=== PATIENT | male | born 2000 | race Caucasian/White ===

== ENCOUNTER 2025-05-29 02:40 | Emergency (ER) | payer SELFPAY ==
[~2025-05-29] VITALS: Ht 177.8 cm; Wt 77.1 kg
[2025-05-29 03:03] LABS: PLATELET COUNT (AUTO) 241 K/uL (152-348); RED BLOOD CELL COUNT(AUTO) 4.49 MIL/uL (4.06-5.63); RED CELL DISTRIBUTION WIDTH 12.8 % (12.1-16.2); WHITE BLOOD COUNT (AUTO) 12.8 K/uL (3.6-10.2)
[2025-05-29 03:11] LABS: CREATININE 1.1 mg/dL (0.6-1.3); SODIUM SERUM 146 mmol/L (136-145); UREA NITROGEN, BLOOD 15 mg/dL (7-18)
[2025-05-29 03:15] LABS: ETHANOL 353.0 MG/DL (0-10)
[2025-05-29 03:17] LABS: ASPARTATE AMINOTRANSFERASE 54 U/L (15-37); TOTAL PROTEIN, SERUM 7.3 g/dL (6.4-8.2)
[2025-05-29 03:44] LABS: *BILIRUBIN,URIN NEGATIVE (NEGATIVE); *BLOOD, URINE 2+ (NEGATIVE); *CLARITY,URINE CLEAR (CLEAR); *COLOR,URINE YELLOW (YELLOW); *KETONES,URINE 1+ (NEGATIVE); *PROTEIN,URINE 2+ (NEGATIVE); *UROBILINOGEN,URINE 0.2 E.U./dl (NORMAL); LEUKOCYTE ESTERASE ,URINE NEGATIVE (NEGATIVE); NITRITE, URINE NEGATIVE (NEGATIVE); UGLUCOSE NEGATIVE (NEGATIVE)
[2025-05-29 04:00] VITALS: BP 116/57
[2025-05-29 04:11] LABS: SQUAMOUS EPITHELIAL CELL,UR NONE SEEN /HPF (NONE SEEN)
[2025-05-29 04:12] LABS: *AMPHETAMINE, URINE NEGATIVE (NEGATIVE); *BARBITURATE, URINE NEGATIVE (NEGATIVE); *BENZODIAZEPINE, URINE POSITIVE (NEGATIVE); *CANNABINOID, URINE POSITIVE (NEGATIVE); *COCCAINE, URINE NEGATIVE (NEGATIVE); *OPIATE, URINE NEGATIVE (NEGATIVE); *PHENCYCLIDINE SCREEN,URINE NEGATIVE (NEGATIVE); FENTANYL, URINE NEGATIVE (NEGATIVE)
[2025-05-29] MEDS: IV NS 1000 ML 1,000 ML IV ONE (04:56)
[2025-05-29 05:07] VITALS: BP 116/57; TEMP 98; O2SAT 95
== END 2025-05-29 05:18 | disposition home or self-care (01) ==
LOC: ER 02:44
DX: F10.10 Alcohol abuse, uncomplicated (principal); Z59.00 Homelessness unspecified; Y90.8 Blood alcohol level of 240 mg/100 ml or more
CPT/HCPCS: 80053; 81001; 85025; 36415; 99283; 96360; 80299; 80320; 80307; J7040; A4606; A4663; C1758; G0480